=== PATIENT | female | born 1970 | race Hispanic/Latino ===

== ENCOUNTER 2021-09-05 12:23 | Inpatient (IN) | payer OTHER ==
[~2021-09-05] VITALS: Ht 165.1 cm; Wt 91.2 kg
[2021-09-05] MEDS ORDERED: INSULIN REGULAR, HUMAN 100 UNIT/1 ML IV NR (12:30)
[2021-09-05] MEDS ORDERED: SODIUM CHLORIDE 0.9% 1000ML 1,000 ML IV ONE ×2 (12:30→14:30)
[2021-09-05 12:53] LABS: BASOPHILS % 0.1 % (0.0-1.0); HEMOGLOBIN 12.6 g/dL (12.0-16.0); LYMPHOCYTES # (AUTO) 1.3 (1.0-3.2); LYMPHOCYTES % 14.1 % (18.0-39.1); MEAN CORPUSCULAR HEMOGLOBIN 33.2 pg (28-32); MEAN CORPUSCULAR HGB CONC 34.1 g/dL (31-35); MEAN CORPUSCULAR VOLUME 97.4 fL (81-99); MONOCYTES # (AUTO) 0.2 (0.2-0.8); MONOCYTES % 2.2 % (4.4-11.3); NEUTROPHILS # (AUTO) 7.6 (2.1-6.9); NEUTROPHILS % 82.5 % (38.7-80.0); PLATELET COUNT 279 x10e3/uL (140-360); RED CELL DISTRIBUTION WIDTH 11.6 % (11.7-14.4)
[2021-09-05 13:19] LABS: ALBUMIN 3.7 g/dL (3.5-5.0); ALBUMIN/GLOBULIN RATIO 0.9 (0.8-2.0); ANION GAP 22.8 mmol/L (8-16); CALCIUM 8.9 mg/dL (8.4-10.2); CREATININE, SERUM 1.72 mg/dL (0.57-1.11); POTASSIUM 4.8 mmol/L (3.5-5.1)
[2021-09-05 13:19] LABS: CLARITY,URINE CLEAR (CLEAR); COLOR,URINE YELLOW (YELLOW); KETONES,URINE NEGATIVE (NEGATIVE); LEUKOCYTE ESTERASE ,URINE NEGATIVE (NEGATIVE); NITRITE,URINE NEGATIVE (NEGATIVE); PROTEIN,URINE DIPSTICK NEGATIVE (NEGATIVE)
[2021-09-05 13:20] LABS: BACTERIA,URINE FEW /HPF; EPITHELIAL CELLS,URINE FEW /LPF; RBC,URINE 0-5 /HPF (0-5); URINE UROBILINOGEN 0.2 mg/dL (0.2 - 1); WBC,URINE (MAN) 0-5 /HPF (0-5)
[2021-09-05] MEDS ORDERED: ONDANSETRON HCL INJ 2MG/ML 2ML 2 MG/ML VIAL IV PRN (14:30)
[2021-09-05] MEDS ORDERED: DEXTROSE 50% SYRINGE 50 ML IV PRN ×2 (14:30→16:45)
[2021-09-05] MEDS ORDERED: INSULIN LISPRO 100 UNIT/1 ML 3ML VIAL SQ SCH ×2 (16:30→16:45)
[2021-09-05 17:00] VITALS: BP 135/88
[2021-09-05] MEDS: SODIUM CHLORIDE 0.9% 1000ML 1,000 ML IV SCH ×2 (17:03→21:24)
[2021-09-05 17:15] VITALS: BP 135/88
[2021-09-05] MEDS ORDERED: MEDROXYPROGESTER5 GM (17:42)
[2021-09-05] MEDS ORDERED: METFORMIN HCL500 MG PO (17:42)
[2021-09-05] MEDS ORDERED: MELOXICAM7.5 MG PO (17:42)
[2021-09-05] MEDS ORDERED: PROTONIX20 MG PO (17:44)
[2021-09-05] MEDS ORDERED: ATORVASTATIN CA20 MG PO (17:44)
[2021-09-05] MEDS ORDERED: LEVOTHYROXINE50 MCG PO (17:44)
[2021-09-05] MEDS ORDERED: ESTRADIOL1 MG PO (17:44)
[2021-09-05] MEDS ORDERED: GLIMEPIRIDE4 MG (17:44)
[2021-09-05] MEDS ORDERED: BENICAR HCT 401 EAC1 (17:46)
[2021-09-05 18:25] VITALS: BP 135/88
[2021-09-05 18:52] VITALS: BP 135/88
[2021-09-05 20:00] VITALS: BP 136/82
[2021-09-05] MEDS: INSULIN LISPRO 100 UNIT/1 ML 3ML VIAL SQ SCH (21:27)
[2021-09-05] MEDS: TRAMADOL HCL 50 MG TAB PO PRN (22:00)
[2021-09-05 23:24] VITALS: BP 136/82
[2021-09-06] VITALS (7 sets, daily range): BP systolic 126–146; BP diastolic 80–96
[2021-09-06] MEDS: SODIUM CHLORIDE 0.9% 1000ML 1,000 ML IV SCH ×3 (06:27→20:47)
[2021-09-06] MEDS: TRAMADOL HCL 50 MG TAB PO PRN ×3 (06:28→21:25)
[2021-09-06 07:41] LABS: BASOPHILS % 0.1 % (0.0-1.0); EOSINOPHILS % 0.2 % (0.0-6.0); HEMATOCRIT 32.6 % (34.2-44.1); HEMOGLOBIN 10.8 g/dL (12.0-16.0); LYMPHOCYTES # (AUTO) 2.5 (1.0-3.2); LYMPHOCYTES % 28.8 % (18.0-39.1); MEAN CORPUSCULAR HEMOGLOBIN 32.9 pg (28-32); MEAN CORPUSCULAR HGB CONC 33.1 g/dL (31-35); MEAN CORPUSCULAR VOLUME 99.4 fL (81-99); MONOCYTES # (AUTO) 0.5 (0.2-0.8); MONOCYTES % 6.1 % (4.4-11.3); NEUTROPHILS # (AUTO) 5.6 (2.1-6.9); NEUTROPHILS % 63.9 % (38.7-80.0); PLATELET COUNT 219 x10e3/uL (140-360); RED BLOOD COUNT 3.28 x10e6/uL (3.6-5.1); RED CELL DISTRIBUTION WIDTH 11.7 % (11.7-14.4)
[2021-09-06 07:58] LABS: ALBUMIN 2.9 g/dL (3.5-5.0); ANION GAP 12.9 mmol/L (8-16); CREATININE, SERUM 1.17 mg/dL (0.57-1.11); MAGNESIUM 1.6 MG/DL (1.3-2.1); POTASSIUM 3.9 mmol/L (3.5-5.1)
[2021-09-06] MEDS: LEVOTHYROXINE SODIUM 50 MCG TAB PO SCH (08:55)
[2021-09-06] MEDS: PANTOPRAZOLE SOD 40 MG TABEC PO SCH (08:55)
[2021-09-06] MEDS: INSULIN LISPRO 100 UNIT/1 ML 3ML VIAL SQ SCH ×4 (08:58→20:48)
[2021-09-06] MEDS: ATORVASTATIN 40 MG TAB PO SCH (20:47)
[2021-09-07] VITALS (8 sets, daily range): BP systolic 120–148; BP diastolic 81–97
[2021-09-07] MEDS: SODIUM CHLORIDE 0.9% 1000ML 1,000 ML IV SCH ×3 (05:40→22:30)
[2021-09-07 06:05] LABS: BASOPHILS % 0.1 % (0.0-1.0); EOSINOPHILS # (AUTO) 0.1 (0.0-0.4); EOSINOPHILS % 0.6 % (0.0-6.0); HEMATOCRIT 34.3 % (34.2-44.1); HEMOGLOBIN 11.4 g/dL (12.0-16.0); LYMPHOCYTES # (AUTO) 2.5 (1.0-3.2); LYMPHOCYTES % 30.4 % (18.0-39.1); MEAN CORPUSCULAR HEMOGLOBIN 32.5 pg (28-32); MEAN CORPUSCULAR HGB CONC 33.2 g/dL (31-35); MEAN CORPUSCULAR VOLUME 97.7 fL (81-99); MONOCYTES # (AUTO) 0.3 (0.2-0.8); NEUTROPHILS # (AUTO) 5.3 (2.1-6.9); NEUTROPHILS % 63.6 % (38.7-80.0); PLATELET COUNT 209 x10e3/uL (140-360); RED BLOOD COUNT 3.51 x10e6/uL (3.6-5.1); RED CELL DISTRIBUTION WIDTH 11.9 % (11.7-14.4)
[2021-09-07 06:28] LABS: ANION GAP 13.7 mmol/L (8-16); CALCIUM 7.7 mg/dL (8.4-10.2); CREATININE, SERUM 0.85 mg/dL (0.57-1.11); MAGNESIUM 1.5 MG/DL (1.3-2.1); POTASSIUM 3.7 mmol/L (3.5-5.1)
[2021-09-07] MEDS: PANTOPRAZOLE SOD 40 MG TABEC PO SCH (08:13)
[2021-09-07] MEDS: LEVOTHYROXINE SODIUM 50 MCG TAB PO SCH (08:13)
[2021-09-07] MEDS: INSULIN LISPRO 100 UNIT/1 ML 3ML VIAL SQ SCH ×4 (08:30→20:50)
[2021-09-07] MEDS: ATORVASTATIN 40 MG TAB PO SCH (20:49)
[2021-09-08 01:07] VITALS: BP 131/95
[2021-09-08 05:49] VITALS: BP 140/97
[2021-09-08] MEDS: SODIUM CHLORIDE 0.9% 1000ML 1,000 ML IV SCH (06:30)
[2021-09-08] MEDS ORDERED: ONDANSETRON HCL 4 MG ORAL DISINTEGRATING TAB PO PRN (07:45)
[2021-09-08] MEDS: PANTOPRAZOLE SOD 40 MG TABEC PO SCH (08:17)
[2021-09-08] MEDS: LEVOTHYROXINE SODIUM 50 MCG TAB PO SCH (08:17)
[2021-09-08] MEDS: INSULIN LISPRO 100 UNIT/1 ML 3ML VIAL SQ SCH (08:33)
== END 2021-09-08 09:00 | disposition home or self-care (01) | DRG 637 ==
LOC: ER 12:27 → ERHOLD 14:36 → IMCU 15:45
PROVIDERS: ADMIT Internal Medicine; ATTEND Internal Medicine
DX: E11.00 Type 2 diabetes mellitus with hyperosmolarity without nonketotic hyperglycemic-hyperosmolar coma (NKHHC) (principal); U07.1 COVID-19; N17.9 Acute kidney failure, unspecified; I10 Essential (primary) hypertension; F41.9 Anxiety disorder, unspecified; K21.9 Gastro-esophageal reflux disease without esophagitis; E78.00 Pure hypercholesterolemia, unspecified; T38.0X5A Adverse effect of glucocorticoids and synthetic analogues, initial encounter
CPT/HCPCS: 36415; 71045; 80053; 81001; 82948; 83735; 85025; 93005; 93306; 94799; 96360; 96361; 96365; 96372; 99285; J1817; J2405; J7030; U0002